=== PATIENT | female | born 1990 | race African-American/Black ===

== ENCOUNTER 2017-01-23 22:40 | Emergency (ER) | payer OTHER ==
[~2017-01-23] VITALS: Ht 162.6 cm; Wt 77.1 kg
[~2017-01-23 22:40] MED LIST: ACET50TA PO; IBUP80TA PO; NOR-0.35 PO; PRENTAB74 PO
[2017-01-24 00:03] LABS: CONTROL LINE UCG INT CTR LINE PRESENT
[2017-01-24] MEDS ORDERED: BACT800T5 PO (00:33)
[2017-01-24 00:39] VITALS: BP 112/58
[2017-01-24] MEDS ORDERED: BACTRIM 160MG/800MG DS TAB PO ONE (00:45)
== END 2017-01-24 00:40 | disposition home or self-care (01) ==
LOC: M ED 23:34
DX: N39.0 Urinary tract infection, site not specified (principal); Z88.8 Allergy status to other drugs, medicaments and biological substances; Z91.030 Bee allergy status

== ENCOUNTER 2017-03-06 01:14 | Emergency (ER) | payer OTHER ==
[~2017-03-06] VITALS: Ht 162.6 cm; Wt 77.1 kg
[~2017-03-06 01:14] MED LIST changes: +BACT800T5 PO
[2017-03-06] MEDS ORDERED: DICL500C PO (06:21)
[2017-03-06 06:30] VITALS: BP 120/62
== END 2017-03-06 06:31 | disposition home or self-care (01) ==
LOC: M ED 03:10
DX: L73.9 Follicular disorder, unspecified (principal); Z91.030 Bee allergy status; Z88.8 Allergy status to other drugs, medicaments and biological substances

== ENCOUNTER 2017-03-10 09:47 | Emergency (ER) | payer OTHER ==
[~2017-03-10] VITALS: Ht 162.6 cm; Wt 79.4 kg
[~2017-03-10 09:47] MED LIST changes: +DICL500C PO
[2017-03-10] MEDS ORDERED: ACETAMINOPHEN 325 MG TAB PO ONE (11:30)
[2017-03-10] MEDS ORDERED: ONDANSETRON 4MG/2ML VIAL (J2405) IV ONE (11:30)
[2017-03-10 12:05] LABS: BASO % 0.3 % (0.0-1.0); EOS # 0.3 K/mm3 (0.0-0.50); EOS % 2.8 % (0.0-3.0); LARGE UNSTAINED CELL # 0.3 K/mm3 (0.0-0.4); LARGE UNSTAINED CELL % 3.3 % (0.0-4.0); LYMPH % 17.6 % (24.0-44.0); MEAN CORPUSCULAR HEMOGLOBIN 31.7 pg (27.0-33.0); MEAN CORPUSCULAR HGB CONC 33.2 g/dl (32.0-36.5); MEAN CORPUSCULAR VOLUME 95.3 fl (80.0-96.0); MONO # 0.4 K/mm3 (0.0-0.8); MONO % 4.5 % (0.0-5.0); NEUTROPHILS # 6.9 K/mm3 (1.8-7.7); NEUTROPHILS % 71.6 % (36.0-66.0); PLATELET COUNT, AUTOMATED 253 k/mm3 (150-450); RED CELL DISTRIBUTION WIDTH 11.9 % (11.5-14.5); WHITE BLOOD COUNT 9.6 K/mm3 (4.0-10.0)
[2017-03-10 12:22] LABS: ANION GAP 6 MEQ/L (8-16); BLOOD UREA NITROGEN 7 MG/DL (7-18); CALCIUM LEVEL 8.6 MG/DL (8.5-10.1); CARBON DIOXIDE LEVEL 30 MEQ/L (21-32); CHLORIDE LEVEL 103 MEQ/L (98-107); CREATININE FOR GFR 0.74 MG/DL (0.55-1.02); GLOMERULAR FILTRATION RATE > 60.0 (>60); GLUCOSE, FASTING 89 MG/DL (70-105); HCG, SERUM QUANTITATIVE 525 MIU/ML; POTASSIUM SERUM 3.7 MEQ/L (3.5-5.1); SODIUM LEVEL 139 MEQ/L (136-145)
--- NOTE | 2017-03-10 13:17 | REP ---
Clinical: Pelvic pain with positive test and history of ectopic . Technique: Transabdominal and transvaginal first trimester obstetrical ultrasound with color Doppler evaluation. Findings: Bladder is unremarkable and measures 5.0 x 2.9 x 2.9 cm. Heterogeneous anteverted uterus measures 8.6 x 4.6 x 6.9 cm and complex likely hemorrhagic debris distends the endometrium to approximately 12 mm without definable . There is a 10 mm ovoid echogenic structure within the endometrial canal which may represent spontaneous , but endometrial polyp/mass cannot be excluded. Trace pelvic free fluid is appreciated and nonspecific. Ovaries demonstrate normal vascularity without torsion. Right ovary measures 3.5 x 1.8 x 3.4 cm; RI equal 0.43 and includes 2.4 cm complex hemorrhagic cyst. Left ovary measures 6.0 x 3.3 x 6.6 cm; RI equal 0.58 and includes three complex cysts measuring between 1.5 and 2.1 cm maximal diameter suggesting complex cyst versus endometriomas. To echogenic structures in the left ovary are also identified measuring 3.2 cm and 4.1 cm raising the possibility of dermoid cysts. Of note, similar findings are identified on pelvic ultrasound dated 03/04/2015. Impression: 1. Hemorrhagic debris within the endocervical canal and 10 mm ovoid echogenic structure without normal intrauterine identified. Differential diagnosis includes early as well as spontaneous and ectopic cannot be excluded. Ovoid structure may also represent endometrial polyp and may warrant reevaluation after subsides. 2. Multiple complex left ovarian structures which are similar to prior examination dated 2014 and suggestive of hemorrhagic cysts as well as endometriomas and dermoid cysts. Again, reevaluation and comparison after subsides may be warranted. Signed by Jay Ramirez MD 03/10/2017 01:10 P
[2017-03-10] MEDS ORDERED: REGL10TA6 PO (13:39)
[2017-03-10 13:46] VITALS: BP 119/80
--- NOTE | 2017-03-12 08:10 | ED PDOC ---
Post-Departure Follow-Up radiology report faxed to Berenice Mayers MD March 12, 2017 08:10
== END 2017-03-10 13:48 | disposition home or self-care (01) ==
LOC: M ED 11:04
DX: Z32.01 Encounter for pregnancy test, result positive (principal); O26.891 Other specified pregnancy related conditions, first trimester; Z87.59 Personal history of other complications of pregnancy, childbirth and the puerperium; Z91.030 Bee allergy status; Z91.89 Other specified personal risk factors, not elsewhere classified
CPT/HCPCS: 76801; 76817; 80048; 81025; 84702; 85025; 87880; 93976; 96374; 99284; J2405

== ENCOUNTER 2017-03-12 22:16 | Emergency (ER) | payer OTHER ==
[~2017-03-12] VITALS: Ht 162.6 cm; Wt 77.1 kg
[2017-03-12 23:30] LABS: BASO % 0.3 % (0.0-1.0); EOS # 0.2 K/mm3 (0.0-0.50); EOS % 2.7 % (0.0-3.0); LARGE UNSTAINED CELL # 0.3 K/mm3 (0.0-0.4); LARGE UNSTAINED CELL % 3.8 % (0.0-4.0); LYMPH # 2.6 K/mm3 (1.5-6.5); LYMPH % 29.5 % (24.0-44.0); MEAN CORPUSCULAR HEMOGLOBIN 31.6 pg (27.0-33.0); MEAN CORPUSCULAR HGB CONC 34.1 g/dl (32.0-36.5); MEAN CORPUSCULAR VOLUME 92.8 fl (80.0-96.0); MONO # 0.5 K/mm3 (0.0-0.8); MONO % 5.8 % (0.0-5.0); NEUTROPHILS # 4.6 K/mm3 (1.8-7.7); PLATELET COUNT, AUTOMATED 263 k/mm3 (150-450); RED CELL DISTRIBUTION WIDTH 11.7 % (11.5-14.5); WHITE BLOOD COUNT 7.9 K/mm3 (4.0-10.0)
--- NOTE | 2017-03-13 01:20 | REPUSA ---
CLINICAL HISTORY: Pain. TECHNIQUE: Transabdominal ultrasound of the pelvis was performed. FINDINGS: The uterus is anteverted measuring 8.3x4.3x6.5 cm. Endometrium is normal in thickness measuring 10 mm. No intrauterine is seen. Right ovary measures 4.3x2x2.4 cm. The left ovary measures 2.9.x 3x2.8 cm. Complex lesion of the left ovary is not well-visualized. Poss ibly a dermoid. IMPRESSION: No intrauterine is seen. Complex lesion of the left ovary. Not well visualized. Possibly a dermoid.
[2017-03-13 02:03] VITALS: BP 123/58
--- NOTE | 2017-03-13 07:04 | ED PDOC ---
Post-Departure Follow-Up radiology report faxed to Berenice Mayers MD March 13, 2017 07:04
== END 2017-03-13 02:05 | disposition home or self-care (01) ==
LOC: M ED 22:52
DX: O20.0 Threatened abortion (principal); Z3A.00 Weeks of gestation of pregnancy not specified

== ENCOUNTER → 2017-03-12 | Outpatient (CLI) | payer OTHER ==
[~2017-03-12] MED LIST changes: +REGL10TA6 PO
== END ==
LOC: M LAB 13:35
PROVIDERS: ATTEND Student in an Organized Health Care Education/Training Program
DX: O99.89 Other specified diseases and conditions complicating pregnancy, childbirth and the puerperium (principal); R10.30 Lower abdominal pain, unspecified